=== PATIENT | male | born 1965 | race Caucasian/White ===

== ENCOUNTER 2019-10-10 08:31 | Outpatient (CLI) | payer BC, SELFPAY ==
--- NOTE | 2019-10-10 08:38 | MM_ITS ---
WS: [id number] BILATERAL DIGITAL DIAGNOSTIC MAMMOGRAM MAMMOGRAPHY WITH CAD CLINICAL INFORMATION: RIGHT BREAST MASS COMPARISON: None. TECHNIQUE: Bilateral CC, MLO, and ML views. FINDINGS: The breasts are composed of heterogeneous fibroglandular subareolar density, which can limit the dete ction of small underlying mass lesions. Palpable marker upper outer breast. Parenchymal tissue underl raza the palpable marker. Ultrasound is pending. Unremarkable left breast. ULTRASOUND BREAST RIGHT TECHNIQUE: Ultrasound right breast focused area of concern. CLINICAL INFORMATION: RIGHT BREAST MASS COMPARISON: None. FINDINGS: Ultrasound right breast at the area of concern in the right nipple. Dense underlying subareolar tissu e. This is similar to the left side. Findings compatible with gynecomastia. No well-defined lesions. No lesions to target for biopsy. Findings are benign. MM/[place] [id number] IMPRESSION: BI-RADS: 2-Benign FOLLOW UP: See Report Additional management of the palpable abnormality should be based on clinical g rounds.
== END 2019-10-10 08:32 | disposition home or self-care (01) ==
LOC: RADSHAW 08:37
PROVIDERS: PCP Physician Assistant; Visit Provider Physician Assistant
DX: N63.11 Unspecified lump in the right breast, upper outer quadrant (principal)
CPT/HCPCS: 76642; 77066